=== PATIENT | male | born 1960 | race Caucasian/White ===

== ENCOUNTER → 2023-10-12 | Outpatient (CLI) | payer OTHER ==
[2023-10-12 12:09] LABS: BASOPHILS ABSOLUTE AUTO 0.02 K/mm3 (0.00-0.23); BASOPHILS PERCENT AUTO 1 % (0-2); EOSINOPHILS ABSOLUTE AUTO 0.12 K/mm3 (0.00-0.68); EOSINOPHILS PERCENT AUTO 4 % (0-6); Hematocrit 46.2 % (37.0-53.0); Hemoglobin 15.9 g/dL (13.5-17.5); IMMATURE GRAN PERCENT AUTO 0 % (0-1); LYMPHOCYTES ABSOLUTE AUTO 0.97 K/mm3 (0.84-5.20); LYMPHOCYTES PERCENT AUTO 31 % (21-46); MONOCYTES ABSOLUTE AUTO 0.52 K/mm3 (0.16-1.47); MONOCYTES PERCENT AUTO 17 % (4-13); Mean Corpuscular HGB 32.6 pg (26.0-34.0); Mean Corpuscular HGB Conc 34.4 g/dL (31.5-36.5); Mean Corpuscular Volume 95 fL (80-100); Mean Platelet Volume 11.2 fL (9.1-12.4); NEUTROPHILS ABSOLUTE AUTO 1.53 K/mm3 (1.96-9.15); NEUTROPHILS PERCENT AUTO 48 % (41-73); Platelet Count 146 K/mm3 (150-400); RDW Coefficient Variation 12.4 % (11.7-14.2); RDW Standard Deviation 43.3 fL (35.1-46.3); Red Blood Cell Count 4.88 M/mm3 (4.30-5.90); White Blood Cell Count 3.16 K/mm3 (4.00-11.30)
[2023-10-12 12:19] LABS: Albumin, Blood 4.4 g/dL (3.4-5.0); Albumin/Globulin Ratio 1.1 (0.8-1.8); Bilirubin, Total 0.8 mg/dL (0.1-1.0); Bun/Creatinine Ratio 10.9 (12.0-20.0); Calcium, Blood 9.8 mg/dL (8.5-10.1); Creatinine, Blood 1.1 mg/dL (0.60-1.20); Globulin, Blood 4.1 g/dL (2.2-4.0); Total Protein, Blood 8.5 g/dL (6.4-8.2)
== END ==
LOC: LAB SHORT 12:05 → LAB 12:05
PROVIDERS: Physician Assistant
DX: R07.9 Chest pain, unspecified (principal)
CPT/HCPCS: 80053; 84484; 85025

== ENCOUNTER 2025-01-16 10:40 | Emergency (ER) | payer OTHER ==
[~2025-01-16] VITALS: Ht 167.6 cm; Wt 97.5 kg
[2025-01-16] MEDS ORDERED: Ipratropium/Albuterol SulF 2.5-0.5MG/3 ML Amp INH ONE (10:55)
[2025-01-16] MEDS ORDERED: Albuterol 2.5 MG/3 ML VIAL INH SCH (10:55)
[2025-01-16 11:02] LABS: Calcium, Ionized (POC) 1.08 mmol/L (1.10-1.46); Chloride (POC) 99 mmol/L (98-108); Creatinine (POC) 1.3 mg/dL (0.8-1.3); Glucose (ISTAT POC) 99 mg/dL (70-99); Hemoglobin (POC) 13.6 g/dL (13.5-17.5); Sodium (POC) 139 mmol/L (135-148); Total CO2 (POC) 32 mmol/L (21-32)
[2025-01-16] MEDS ORDERED: PROAIR DIGIHAL90 MCG (11:05)
[2025-01-16] MEDS ORDERED: OMEP20ER PO (11:05)
[2025-01-16 11:06] LABS: BASOPHILS ABSOLUTE AUTO 0.05 K/mm3 (0.00-0.23); BASOPHILS PERCENT AUTO 1 % (0-2); EOSINOPHILS PERCENT AUTO 3 % (0-6); Hematocrit 38.6 % (37.0-53.0); Hemoglobin 13.5 g/dL (13.5-17.5); IMMATURE GRAN ABSOLUTE AUTO 0.01 K/mm3 (0.00-0.10); IMMATURE GRAN PERCENT AUTO 0 % (0-1); LYMPHOCYTES ABSOLUTE AUTO 1.71 K/mm3 (0.84-5.20); LYMPHOCYTES PERCENT AUTO 25 % (21-46); MONOCYTES ABSOLUTE AUTO 0.65 K/mm3 (0.16-1.47); MONOCYTES PERCENT AUTO 10 % (4-13); Mean Corpuscular HGB 32.8 pg (26.0-34.0); Mean Corpuscular Volume 94 fL (80-100); Mean Platelet Volume 10.8 fL (9.1-12.4); NEUTROPHILS ABSOLUTE AUTO 4.25 K/mm3 (1.96-9.15); NEUTROPHILS PERCENT AUTO 62 % (41-73); Platelet Count 163 K/mm3 (150-400); RDW Coefficient Variation 11.9 % (11.7-14.2); RDW Standard Deviation 40.9 fL (35.1-46.3); Red Blood Cell Count 4.11 M/mm3 (4.30-5.90); White Blood Cell Count 6.87 K/mm3 (4.00-11.30)
[2025-01-16] MEDS ORDERED: TRELEGY ELLIPT1 EAC1 IH (11:06)
[2025-01-16] MEDS ORDERED: LISI20 PO (11:06)
[2025-01-16] MEDS ORDERED: CHLO25B PO (11:08)
[2025-01-16] MEDS ORDERED: CALCIUM GLUC IN NACL, ISO-OSM 100 ML IV ONE (11:15)
[2025-01-16 11:36] LABS: Magnesium, Blood 2.5 mg/dL (1.6-2.4)
[2025-01-16 11:36] LABS: Base Excess Venous 6.8 mmol/L; Bicarbonate Venous 29.3 mmol/L (24.0-30.0); PCO2 Venous 52.2 mmHg (38-42); pH Blood Venous 7.39 (7.34-7.37)
[2025-01-16 11:52] LABS: Albumin, Blood 3.8 g/dL (3.4-5.0); Bilirubin, Total 0.5 mg/dL (0.1-1.0); Bun/Creatinine Ratio 25.5 (12.0-20.0); Calcium, Blood 9.1 mg/dL (8.5-10.1); Creatinine, Blood 1.1 mg/dL (0.60-1.20); Potassium, Blood 3.9 mmol/L (3.5-5.5); Total Protein, Blood 7.8 g/dL (6.4-8.2)
[2025-01-16 13:30] VITALS: BP 114/61
[2025-01-16] MEDS ORDERED: PredniSONE 20 MG Tab PO ONE (13:35)
[2025-01-16] MEDS ORDERED: PRED20 PO (13:39)
== END 2025-01-16 13:55 | disposition home or self-care (01) ==
LOC: ER 10:40
PROVIDERS: Student in an Organized Health Care Education/Training Program
DX: J44.1 Chronic obstructive pulmonary disease with (acute) exacerbation (principal); R00.8 Other abnormalities of heart beat; E83.51 Hypocalcemia; I10 Essential (primary) hypertension; Z79.899 Other long term (current) drug therapy
CPT/HCPCS: 71046; 80047; 80053; 82803; 83735; 83880; 84484; 85014; 85025; 93005; 93010; 94644; 94664; 96374; 99284-25; J0612; J7512